=== PATIENT | female | born 1970 | race Caucasian/White ===

== ENCOUNTER → 2018-10-19 | Outpatient (CLI) | payer BC ==
--- NOTE | 2018-10-19 16:39 | KCIC ---
Chest, PA and Lateral: Technique: PA and lateral views of the chest were obtained. History: Cough. Comparison: None. Findings: The heart size grossly appears unremarkable. Minimal prominent appearing bilateral interstitial lung markings could be chronic interstitial changes. IMPRESSION: No acute cardiopulmonary findings. Electronically signed by: Taj Pierre MD (10/19/2018 4:36 PM) [place] [id number]
== END | disposition home or self-care (01) ==
LOC: KCIC 11:24
PROVIDERS: ATTEND Nurse Practitioner Family
DX: R05 Cough (principal); R07.89 Other chest pain
CPT/HCPCS: 71046

== ENCOUNTER → 2020-08-06 | Outpatient (CLI) | payer OTHER ==
--- NOTE | 2020-08-06 12:35 | RAD ---
DATE: August 06, 2020 EXAM: MAMMO VICTOR M SCREENING BILATERAL HISTORY: Screening study. COMPARISON: 2014 This study was interpreted with the benefit of Computerized Aided Detection (CAD). FINDINGS: Breast Density: SCATTERED The breast parenchyma shows scattered fibroglandular densities. Breast parenchyma level B.. There is a nodular density seen laterally within the left breast in the CC projection only. Recommend focal 2-D compression of this area in the CC projection and a 90 degree 3-D view of the left breast. This finding persists, then left breast sonography may be needed. The right breast is stable. IMPRESSION: New nodular density of the left breast. Additional imaging is needed. BI-RADS CATEGORY: 0 INCOMPLETE: NEEDS ADDITIONAL IMAGING EVALUATION AND/OR PRIOR MAMMOGRAMS FOR COMPARISON. RECOMMENDED FOLLOW-UP: ADD ADDITIONAL IMAGING PQRS compliance statement: Patient information was entered into a reminder system with a target due date now for the next imaging study. Mammography is a sensitive method for finding small breast cancers, but it does not detect them all and is not a substitute for careful clinical examination. A negative mammogram does not negate a clinically suspicious finding and should not result in delay in biopsying a clinically suspicious abnormality. "Our facility is accredited by the [employer] Mammography [employer]." The patient's breast density may affect the ability of mammography to detect breast cancer. There are 4 categories of breast density, A, B, C and D. Breast density A means that most of the breast tissue is replaced with adipose tissue and therefore is not dense. Breast density B means that the breast tissue is mildly dense and scattered. Breast density C means that the breast tissue is heterogeneously dense. Breast density D means that the breast tissue is very dense. Breast densities especially C and D may decrease the sensitivity of mammography to detect breast cancer. Therefore, the patient may benefit from 3-D breast mammography (3D breast tomography) as a part of their screening mammogram. Insurance may or may not pay for this additional imaging. The patient's breast density based on today's mammogram is category B.
== END ==
LOC: MAMMO 09:10
PROVIDERS: ATTEND Nurse Practitioner Gerontology
DX: Z12.31 Encounter for screening mammogram for malignant neoplasm of breast (principal)
CPT/HCPCS: 77063; 77067

== ENCOUNTER → 2020-08-07 | Outpatient (CLI) | payer OTHER ==
--- NOTE | 2020-08-07 14:27 | RAD ---
DATE: August 07, 2020 EXAM: MAMMO VICTOR M YUNG LT, BREAST LEFT HISTORY: Further evaluation of abnormality seen on screening mammogram COMPARISON: August 06, 2020 screening mammogram. This study was interpreted with the benefit of Computerized Aided Detection (CAD). DIAGNOSTIC LEFT BREAST MAMMOGRAPHY INCLUDING 3-D IMAGING Focal 2-D compression view of the lateral aspect of the left breast in the CC view was performed. 2-D rolled CC views of the left breast were performed. A 90 degree 3-D study of the left breast was performed. The nodular density persists within the lateral aspect of the left breast but is not well seen in the 90 degree view. It measures 9 mm in size. Sonography will be performed. LEFT BREAST SONOGRAPHY: High-resolution sonography of the lateral one half of the left breast was performed. At the 2:00 position 7 cm from the nipple, a hypoechoic solid nodule is seen measuring 9 mm in greatest dimension. The AP dimension is similar to the transverse dimension. No color Doppler flow is seen within it. The borders are smooth. Sonography of the left axillary region was performed and no abnormal-appearing lymph node is seen. IMPRESSION: Solid hypoechoic nodule of the 2:00 position of the left breast. Recommend ultrasound-guided core biopsy of the left breast. Note-I discussed the findings and recommendation for biopsy with the patient after completion of the study. The doctor's office will be called with the result as well. BI-RADS CATEGORY: 4 SUSPICIOUS ABNORMALITY-BIOPSY SHOULD BE CONSIDERED RECOMMENDED FOLLOW-UP: BIO BIOPSY RECOMMENDED PQRS compliance statement: Patient information was entered into a reminder system with a target due date now for the next imaging evaluation. Mammography is a sensitive method for finding small breast cancers, but it does not detect them all and is not a substitute for careful clinical examination. A negative mammogram does not negate a clinically suspicious finding and should not result in delay in biopsying a clinically suspicious abnormality. "Our facility is accredited by the [employer] Mammography [employer]." The patient's breast density may affect the ability of mammography to detect breast cancer. There are 4 categories of breast density, A, B, C and D. Breast density A means that most of the breast tissue is replaced with adipose tissue and therefore is not dense. Breast density B means that the breast tissue is mildly dense and scattered. Breast density C means that the breast tissue is heterogeneously dense. Breast density D means that the breast tissue is very dense. Breast densities especially C and D may decrease the sensitivity of mammography to detect breast cancer. Therefore, the patient may benefit from 3-D breast mammography (3D breast tomography) as a part of their screening mammogram. Insurance may or may not pay for this additional imaging. The patient's breast density based on today's mammogram is category B.
== END ==
LOC: MAMMO 12:20
PROVIDERS: ATTEND Nurse Practitioner Gerontology
DX: N63.21 Unspecified lump in the left breast, upper outer quadrant (principal)
CPT/HCPCS: 76641; 77065; G0279; 77061